=== PATIENT | male | born 1990 | race Caucasian/White ===

== ENCOUNTER 2017-05-14 06:11 | Emergency (ER) | payer OTHER ==
[~2017-05-14] VITALS: Ht 167.6 cm; Wt 59.0 kg
[~2017-05-14 06:11] MED LIST: ATIVAN1 MG PO; BENTYL20 MG PO; CIPROFLOXACIN500 M1 PO; K-DUR 20 MEQ T20 MEQ PO; NOHOMEMEDICATIONS; PEPCID20 MG PO; PHENERGAN 25 MG25 M1 PO; PHENERGAN12.5 M2 RECTAL; PHENERGAN50 MG RC; PROMS25 WY RECTAL; PROTONIX40 M1 PO; ZOFRAN ODT4 MG DISSOLVE; ZOFRAN ODT4 MG PO; ZOFRAN ODT4 MG SUBLING; ZOFRAN4 MG PO
[2017-05-14 06:18] VITALS: BP 124/70
[2017-05-14] MEDS ORDERED: ACID REFLUX PILL (06:24)
== END 2017-05-14 06:42 | disposition home or self-care (01) ==
LOC: M.ERS 06:11
DX: Z53.21 Procedure and treatment not carried out due to patient leaving prior to being seen by health care provider (principal)

== ENCOUNTER 2017-05-16 04:32 | Emergency (ER) | payer OTHER ==
[~2017-05-16] VITALS: Ht 167.6 cm; Wt 59.0 kg
[~2017-05-16 04:32] MED LIST changes: +ACID REFLUX PILL
[2017-05-16 04:58] LABS: ABSOLUTE BASOPHILS 0.1 thou/uL (0.0-0.2); ABSOLUTE EOSINOPHILS 0.1 thou/uL (0.0-0.7); ABSOLUTE LYMPHOCYTES 2.2 thou/uL (0.8-5.3); ABSOLUTE MONOCYTES 0.6 thou/uL (0.0-1.2); ABSOLUTE NEUTROPHILS 4.1 thou/uL (1.6-8.1); EOSINOPHILS 2.1 %; HEMATOCRIT 48.4 % (42.0-52.0); HEMOGLOBIN 16.4 gm/dL (14.0-18.0); LYMPHOCYTES 31.6 %; MCHC 33.9 g/dL (28.0-37.0); MCV 88.4 fL (80.0-100.0); MONOCYTES 7.8 %; MPV 7.9 fl. (7.2-11.1); NUCLEATED RBCS 0 /100WBC; PLATELET COUNT* 327 thou/uL (150-400); POLYS 57.5 %; RBC 5.47 mil/uL (4.50-6.00); RDW-CV 12.4 % (10.5-14.5)
[2017-05-16 05:11] LABS: CALCIUM 10.3 mg/dL (8.5-10.1); POTASSIUM 3.9 mmol/L (3.5-5.1)
[2017-05-16 05:16] LABS: TOTAL BILIRUBIN 0.4 mg/dL (<0.1-1.0); TOTAL PROTEIN 8.9 g/dL (6.4-8.2)
[2017-05-16 05:22] LABS: URINE BILIRUBIN NEGATIVE (Negative); URINE BLOOD NEGATIVE (Negative); URINE CLARITY CLEAR; URINE COLOR YELLOW; URINE GLUCOSE-RANDOM NEGATIVE (Negative); URINE KETONES NEGATIVE (Negative); URINE LEUKOCYTES-REFLEX NEGATIVE (Negative); URINE NITRITE-REFLEX NEGATIVE (Negative); URINE PROTEIN NEGATIVE (Negative); URINE UROBILINOGEN 0.2 E.U./dl (0.2-1.0)
[2017-05-16 05:28] LABS: AMP/METHAMP Negative (Negative); BARBITURATES Negative (Negative); BENZODIAZEPINES Negative (Negative); COCAINE Negative (Negative); METHADONE Negative (Negative); OPIATES Negative (Negative); PCP Negative (Negative); THC POSITIVE (Negative)
[2017-05-16] MEDS ORDERED: ZOFRAN ODT4 MG PO (06:38)
[2017-05-16 06:48] VITALS: BP 133/76
== END 2017-05-16 06:48 | disposition home or self-care (01) ==
LOC: M.ERS 04:32
PROVIDERS: Emergency Medicine Emergency Medical Services
DX: G43.A0 Cyclical vomiting, in migraine, not intractable (principal); F12.10 Cannabis abuse, uncomplicated

== ENCOUNTER 2017-05-21 10:01 | Emergency (ER) | payer OTHER ==
[~2017-05-21] VITALS: Ht 167.6 cm; Wt 61.2 kg
[2017-05-21 10:40] LABS: ABSOLUTE BASOPHILS 0.1 thou/uL (0.0-0.2); ABSOLUTE LYMPHOCYTES 1.6 thou/uL (0.8-5.3); ABSOLUTE MONOCYTES 0.5 thou/uL (0.0-1.2); ABSOLUTE NEUTROPHILS 10.5 thou/uL (1.6-8.1); BASOPHILS 0.5 %; EOSINOPHILS 0.1 %; HEMATOCRIT 51.6 % (42.0-52.0); HEMOGLOBIN 17.3 gm/dL (14.0-18.0); LYMPHOCYTES 12.5 %; MCH 29.7 pg (26.0-34.0); MCHC 33.5 g/dL (28.0-37.0); MCV 88.6 fL (80.0-100.0); MONOCYTES 4.1 %; MPV 8.6 fl. (7.2-11.1); NUCLEATED RBCS 0 /100WBC; PLATELET COUNT* 379 thou/uL (150-400); POLYS 82.8 %; RBC 5.83 mil/uL (4.50-6.00); RDW-CV 12.4 % (10.5-14.5); WBC 12.7 thou/uL (4.0-11.0)
[2017-05-21 10:47] LABS: CALCIUM 10.3 mg/dL (8.5-10.1); CREATININE 1.1 mg/dL (0.6-1.3); POTASSIUM 3.9 mmol/L (3.5-5.1)
[2017-05-21 10:51] LABS: ALBUMIN 5.4 g/dL (3.4-5.0); TOTAL PROTEIN 9.2 g/dL (6.4-8.2)
[2017-05-21] MEDS ORDERED: ZOFRAN ODT4 MG PO (11:06)
[2017-05-21] MEDS ORDERED: PROMS25 WY RECTAL (11:06)
[2017-05-21 11:15] VITALS: BP 138/78
== END 2017-05-21 11:16 | disposition home or self-care (01) ==
LOC: M.ERS 10:01
PROVIDERS: Physician Assistant
DX: G43.A0 Cyclical vomiting, in migraine, not intractable (principal); F12.10 Cannabis abuse, uncomplicated

== ENCOUNTER 2017-08-04 18:22 | Emergency (ER) | payer OTHER ==
[~2017-08-04] VITALS: Ht 167.6 cm; Wt 57.1 kg
[2017-08-04 19:08] LABS: HEMATOCRIT 49.1 % (42.0-52.0); HEMOGLOBIN 16.7 gm/dL (14.0-18.0); MCH 30.6 pg (26.0-34.0); MCHC 34.1 g/dL (28.0-37.0); MCV 89.8 fL (80.0-100.0); MPV 8.5 fl. (7.2-11.1); NUCLEATED RBCS 0 /100WBC; PLATELET COUNT* 318 thou/uL (150-400); RBC 5.47 mil/uL (4.50-6.00); WBC 14.7 thou/uL (4.0-11.0)
[2017-08-04 19:20] LABS: CALCIUM 10.1 mg/dL (8.5-10.1); CREATININE 1.2 mg/dL (0.6-1.3); POTASSIUM 4.3 mmol/L (3.5-5.1)
[2017-08-04 19:24] LABS: ALBUMIN 5.2 g/dL (3.4-5.0); TOTAL BILIRUBIN 1.2 mg/dL (<0.1-1.0); TOTAL PROTEIN 8.7 g/dL (6.4-8.2)
[2017-08-04 19:35] LABS: ABSOLUTE LYMPHOCYTES 0.7 thou/uL (0.8-5.3); ABSOLUTE MONOCYTES 0.7 thou/uL (0.0-1.2); ABSOLUTE NEUTROPHILS 13.2 thou/uL (1.6-8.1)
[2017-08-04 19:36] LABS: PLATELET ESTIMATE ADEQUATE
[2017-08-04 20:13] LABS: URINE BLOOD NEGATIVE (Negative); URINE CLARITY CLEAR; URINE COLOR YELLOW; URINE GLUCOSE-RANDOM NEGATIVE (Negative); URINE LEUKOCYTES-REFLEX NEGATIVE (Negative); URINE NITRITE-REFLEX NEGATIVE (Negative); URINE PROTEIN 2+ (Negative); URINE UROBILINOGEN 0.2 E.U./dl (0.2-1.0)
[2017-08-04 20:15] LABS: URINE KETONES 3+ (Negative)
[2017-08-04 20:18] LABS: ICTOTEST (BILI CONFIRMATORY) Negative (Negative); URINE BILIRUBIN 1+ (Negative)
[2017-08-04 20:21] LABS: URINE REDUCING SUBSTANCE NEGATIVE (Negative)
[2017-08-04 20:22] LABS: AMP/METHAMP Negative (Negative); BARBITURATES Negative (Negative); BENZODIAZEPINES POSITIVE (Negative); COCAINE POSITIVE (Negative); METHADONE Negative (Negative); OPIATES Negative (Negative); PCP Negative (Negative); THC POSITIVE (Negative)
[2017-08-04 20:25] LABS: SQUAMOUS 0-3 Few /LPF (0-3)
[2017-08-04 20:26] LABS: BACTERIA-REFLEX None Seen /HPF (None Seen); CASTS None Seen /LPF (None Seen); CRYSTALS None Seen /LPF (None Seen); MUCUS >6 Heavy strn/LPF (None Seen); URINE RBC 0-2 Rare /HPF (0-2); URINE WBC-REFLEX None Seen /HPF (0-5)
[2017-08-04 20:35] VITALS: BP 116/76
== END 2017-08-04 20:38 | disposition left against medical advice (07) ==
LOC: M.ERS 18:22
PROVIDERS: Nurse Practitioner Family
DX: G43.A0 Cyclical vomiting, in migraine, not intractable (principal)

== ENCOUNTER 2017-08-31 12:21 | Emergency (ER) | payer OTHER ==
[~2017-08-31] VITALS: Ht 160 cm; Wt 61.2 kg
[2017-08-31 12:52] LABS: ABSOLUTE LYMPHOCYTES 1.3 thou/uL (0.8-5.3); ABSOLUTE MONOCYTES 0.6 thou/uL (0.0-1.2); ABSOLUTE NEUTROPHILS 11.2 thou/uL (1.6-8.1); BASOPHILS 0.4 %; EOSINOPHILS 0.1 %; HEMATOCRIT 48.6 % (42.0-52.0); MCH 30.2 pg (26.0-34.0); MCHC 32.9 g/dL (28.0-37.0); MCV 91.6 fL (80.0-100.0); MONOCYTES 4.8 %; MPV 8.7 fl. (7.2-11.1); NUCLEATED RBCS 0 /100WBC; PLATELET COUNT* 270 thou/uL (150-400); POLYS 84.7 %; RBC 5.31 mil/uL (4.50-6.00); RDW-CV 12.5 % (10.5-14.5); WBC 13.2 thou/uL (4.0-11.0)
[2017-08-31 12:56] LABS: CALCIUM 8.9 mg/dL (8.5-10.1); CREATININE 1.1 mg/dL (0.6-1.3); POTASSIUM 4.2 mmol/L (3.5-5.1)
[2017-08-31 13:01] LABS: ALBUMIN 4.7 g/dL (3.4-5.0); TOTAL BILIRUBIN 0.8 mg/dL (<0.1-1.0); TOTAL PROTEIN 7.7 g/dL (6.4-8.2)
[2017-08-31 14:13] LABS: URINE BILIRUBIN NEGATIVE (Negative); URINE BLOOD NEGATIVE (Negative); URINE CLARITY CLEAR; URINE COLOR YELLOW; URINE GLUCOSE-RANDOM NEGATIVE (Negative); URINE KETONES NEGATIVE (Negative); URINE LEUKOCYTES-REFLEX NEGATIVE (Negative); URINE NITRITE-REFLEX NEGATIVE (Negative); URINE PROTEIN NEGATIVE (Negative); URINE SPECIFIC GRAVITY 1.015 (1.005-1.030); URINE UROBILINOGEN 0.2 E.U./dl (0.2-1.0)
[2017-08-31 14:20] LABS: AMP/METHAMP Negative (Negative); BARBITURATES POSITIVE (Negative); BENZODIAZEPINES Negative (Negative); COCAINE Negative (Negative); METHADONE Negative (Negative); OPIATES Negative (Negative); PCP Negative (Negative); THC POSITIVE (Negative)
[2017-08-31 14:48] VITALS: BP 122/72
== END 2017-08-31 14:48 | disposition home or self-care (01) ==
LOC: M.ERS 12:21
PROVIDERS: Emergency Medicine
DX: T78.40XA Allergy, unspecified, initial encounter (principal); X58.XXXA Exposure to other specified factors, initial encounter

== ENCOUNTER 2018-01-07 10:53 | Emergency (ER) | payer OTHER ==
[~2018-01-07] VITALS: Ht 167.6 cm; Wt 56.7 kg
[2018-01-07] MEDS ORDERED: AUGMENTIN 875-1 EACH PO (11:52)
[2018-01-07 11:56] VITALS: BP 132/90
== END 2018-01-07 11:56 | disposition home or self-care (01) ==
LOC: M.ERS 10:53
DX: S51.811A Laceration without foreign body of right forearm, initial encounter (principal); W54.0XXA Bitten by dog, initial encounter; Y93.89 Activity, other specified; Y92.89 Other specified places as the place of occurrence of the external cause; Y99.8 Other external cause status

== ENCOUNTER 2018-03-04 09:12 | Emergency (ER) | payer OTHER ==
[~2018-03-04] VITALS: Ht 167.6 cm; Wt 61.2 kg
[~2018-03-04 09:12] MED LIST changes: +AUGMENTIN 875-1 EACH PO
[2018-03-04 09:44] LABS: ABSOLUTE BASOPHILS 0.1 thou/uL (0.0-0.2); ABSOLUTE LYMPHOCYTES 1.8 thou/uL (0.8-5.3); ABSOLUTE MONOCYTES 0.6 thou/uL (0.0-1.2); BASOPHILS 0.6 %; EOSINOPHILS 0.1 %; HEMOGLOBIN 16.7 gm/dL (14.0-18.0); LYMPHOCYTES 15.9 %; MCH 29.5 pg (26.0-34.0); MCHC 33.3 g/dL (28.0-37.0); MCV 88.5 fL (80.0-100.0); MONOCYTES 5.4 %; MPV 8.9 fl. (7.2-11.1); NUCLEATED RBCS 0 /100WBC; PLATELET COUNT* 347 thou/uL (150-400); RBC 5.65 mil/uL (4.50-6.00); RDW-CV 12.4 % (10.5-14.5); WBC 11.6 thou/uL (4.0-11.0)
[2018-03-04 09:58] LABS: ALBUMIN 5.3 g/dL (3.4-5.0); CALCIUM 10.2 mg/dL (8.5-10.1); CREATININE 1.1 mg/dL (0.6-1.3); TOTAL BILIRUBIN 1.2 mg/dL (<0.1-1.0); TOTAL PROTEIN 8.9 g/dL (6.4-8.2)
[2018-03-04 11:13] LABS: URINE BILIRUBIN NEGATIVE (Negative); URINE BLOOD NEGATIVE (Negative); URINE CLARITY CLEAR; URINE COLOR YELLOW; URINE GLUCOSE-RANDOM NEGATIVE (Negative); URINE KETONES 1+ (Negative); URINE LEUKOCYTES-REFLEX NEGATIVE (Negative); URINE NITRITE-REFLEX NEGATIVE (Negative); URINE PROTEIN TRACE (Negative); URINE SPECIFIC GRAVITY 1.015 (1.005-1.030); URINE UROBILINOGEN 0.2 E.U./dl (0.2-1.0)
[2018-03-04] MEDS ORDERED: ZOFRAN ODT4 MG DISSOLVE (11:20)
[2018-03-04 11:27] LABS: AMP/METHAMP Negative (Negative); BARBITURATES Negative (Negative); BENZODIAZEPINES Negative (Negative); COCAINE Negative (Negative); METHADONE Negative (Negative); OPIATES Negative (Negative); PCP Negative (Negative); THC POSITIVE (Negative)
[2018-03-04 11:30] VITALS: BP 131/74
--- NOTE | 2018-03-04 15:42 | EKG ---
[place] [address] ELECTROCARDIOGRAM REPORT Name: BETTE QUIROGA III [facility] [id number] Admission: 03/04/18 Attend Phys: Discharge: 03/04/18 Date of : 89 Report #: [id number] THIS REPORT FOR: //name// [facility] ED Test Date: 2018-03-04 Test Time: 10:05:20 Pat Name: BETTE QUIROGA Department: Room: Gender: Display Coordinator: Yvon GARNICA : 1990 Requested By: Santosh Pope Order Number: [id number] MD: Temo Garcia Measurements Intervals [place] Rate: 69 P: 65 [place]: 128 QRS: 66 QRSD: 87 T: 56 QT: 430 QTc: 461 Interpretive Statements Sinus arrhythmia No previous ECG available for comparison Electronically Signed On 03-04-2018 15:42:31 CDT by Temo Garcia [email or web address] <ELECTRONICALLY SIGNED> By: Temo Garcia MD, [facility] 03/04/18 1542 1005 1005 Temo Garcia MD, FACC /EPI
== END 2018-03-04 11:32 | disposition home or self-care (01) ==
LOC: M.ERS 09:12
PROVIDERS: Emergency Medicine Emergency Medical Services
DX: G43.A0 Cyclical vomiting, in migraine, not intractable (principal); Z88.8 Allergy status to other drugs, medicaments and biological substances

== ENCOUNTER 2018-03-16 15:24 | Emergency (ER) | payer OTHER ==
[~2018-03-16] VITALS: Ht 172.7 cm; Wt 63.5 kg
[2018-03-16 16:06] LABS: ABSOLUTE BASOPHILS 0.1 thou/uL (0.0-0.2); ABSOLUTE LYMPHOCYTES 1.9 thou/uL (0.8-5.3); ABSOLUTE MONOCYTES 1.1 thou/uL (0.0-1.2); ABSOLUTE NEUTROPHILS 14.1 thou/uL (1.6-8.1); BASOPHILS 0.5 %; EOSINOPHILS 0.3 %; HEMATOCRIT 49.9 % (42.0-52.0); HEMOGLOBIN 16.6 gm/dL (14.0-18.0); LYMPHOCYTES 10.8 %; MCH 29.9 pg (26.0-34.0); MCHC 33.2 g/dL (28.0-37.0); MCV 90.1 fL (80.0-100.0); MONOCYTES 6.5 %; MPV 8.8 fl. (7.2-11.1); NUCLEATED RBCS 0 /100WBC; PLATELET COUNT* 390 thou/uL (150-400); POLYS 81.9 %; RBC 5.54 mil/uL (4.50-6.00); RDW-CV 12.7 % (10.5-14.5); WBC 17.2 thou/uL (4.0-11.0)
[2018-03-16 16:10] LABS: CALCIUM 10.6 mg/dL (8.5-10.1); CREATININE 1.2 mg/dL (0.6-1.3); POTASSIUM 3.4 mmol/L (3.5-5.1)
[2018-03-16] MEDS ORDERED: VISTARIL 25 MG25 M1 PO ×2 (17:16→17:18)
[2018-03-16 17:32] VITALS: BP 115/63
== END 2018-03-16 17:40 | disposition home or self-care (01) ==
LOC: M.ERS 15:24
PROVIDERS: Nurse Practitioner
DX: R10.9 Unspecified abdominal pain (principal); R11.2 Nausea with vomiting, unspecified; Z88.8 Allergy status to other drugs, medicaments and biological substances

== ENCOUNTER 2018-04-29 09:57 | Emergency (ER) | payer OTHER ==
[~2018-04-29] VITALS: Ht 167.6 cm; Wt 61.2 kg
[~2018-04-29 09:57] MED LIST changes: +VISTARIL 25 MG25 M1 PO
[2018-04-29 10:22] LABS: ABSOLUTE LYMPHOCYTES 1.5 thou/uL (0.8-5.3); ABSOLUTE MONOCYTES 0.4 thou/uL (0.0-1.2); ABSOLUTE NEUTROPHILS 9.1 thou/uL (1.6-8.1); BASOPHILS 0.4 %; EOSINOPHILS 0.1 %; HEMATOCRIT 49.2 % (42.0-52.0); HEMOGLOBIN 16.8 gm/dL (14.0-18.0); LYMPHOCYTES 13.5 %; MCH 30.3 pg (26.0-34.0); MCHC 34.1 g/dL (28.0-37.0); MCV 88.8 fL (80.0-100.0); MONOCYTES 3.5 %; NUCLEATED RBCS 0 /100WBC; PLATELET COUNT* 322 thou/uL (150-400); POLYS 82.5 %; RBC 5.54 mil/uL (4.50-6.00); RDW-CV 12.9 % (10.5-14.5); WBC 11.1 thou/uL (4.0-11.0)
[2018-04-29 10:26] LABS: POTASSIUM 3.7 mmol/L (3.5-5.1)
[2018-04-29 10:33] LABS: ALBUMIN 5.2 g/dL (3.4-5.0); TOTAL BILIRUBIN 1.4 mg/dL (<0.1-1.0); TOTAL PROTEIN 8.7 g/dL (6.4-8.2)
[2018-04-29] MEDS ORDERED: ZOFRAN ODT4 MG PO (10:50)
[2018-04-29] MEDS ORDERED: HYDROXYZINE HCL25 M1 PO (10:52)
[2018-04-29 10:58] VITALS: BP 156/72
== END 2018-04-29 10:58 | disposition home or self-care (01) ==
LOC: M.ERS 09:57
PROVIDERS: Physician Assistant
DX: K31.89 Other diseases of stomach and duodenum (principal); R11.10 Vomiting, unspecified; F41.9 Anxiety disorder, unspecified

== ENCOUNTER 2018-06-06 14:30 | Emergency (ER) | payer OTHER ==
[~2018-06-06] VITALS: Ht 170.2 cm; Wt 63.5 kg
[~2018-06-06 14:30] MED LIST changes: +HYDROXYZINE HCL25 M1 PO
[2018-06-06 15:15] LABS: HEMATOCRIT 47.9 % (42.0-52.0); HEMOGLOBIN 16.2 gm/dL (14.0-18.0); MCH 30.6 pg (26.0-34.0); MCHC 33.8 g/dL (28.0-37.0); MCV 90.7 fL (80.0-100.0); MPV 8.7 fl. (7.2-11.1); NUCLEATED RBCS 0 /100WBC; PLATELET COUNT* 334 thou/uL (150-400); RBC 5.28 mil/uL (4.50-6.00); RDW-CV 12.9 % (10.5-14.5); WBC 12.8 thou/uL (4.0-11.0)
[2018-06-06 15:23] LABS: CALCIUM 10.1 mg/dL (8.5-10.1); CREATININE 1.2 mg/dL (0.6-1.3); POTASSIUM 3.4 mmol/L (3.5-5.1)
[2018-06-06 15:28] LABS: ALBUMIN 5.1 g/dL (3.4-5.0); TOTAL PROTEIN 8.9 g/dL (6.4-8.2)
[2018-06-06 15:36] LABS: ABSOLUTE BASOPHILS 0.1 thou/uL (0.0-0.2); ABSOLUTE LYMPHOCYTES 0.6 thou/uL (0.8-5.3); ABSOLUTE MONOCYTES 0.5 thou/uL (0.0-1.2); ABSOLUTE NEUTROPHILS 11.5 thou/uL (1.6-8.1); ATYPICAL LYMPHS 1 %; PLATELET ESTIMATE ADEQUATE
[2018-06-06 16:44] LABS: URINE BILIRUBIN NEGATIVE (Negative); URINE BLOOD NEGATIVE (Negative); URINE CLARITY CLEAR; URINE COLOR YELLOW; URINE GLUCOSE-RANDOM NEGATIVE (Negative); URINE LEUKOCYTES NEGATIVE (Negative); URINE NITRITE NEGATIVE (Negative); URINE PROTEIN 1+ (Negative); URINE SPECIFIC GRAVITY 1.025 (1.005-1.030); URINE UROBILINOGEN 0.2 E.U./dl (0.2-1.0)
[2018-06-06 16:45] LABS: URINE KETONES 3+ (Negative)
[2018-06-06 16:51] LABS: AMP/METHAMP Negative (Negative); BARBITURATES Negative (Negative); BENZODIAZEPINES Negative (Negative); COCAINE Negative (Negative); METHADONE Negative (Negative); OPIATES Negative (Negative); PCP Negative (Negative); THC POSITIVE (Negative)
[2018-06-06] MEDS ORDERED: BENTYL 20 MG TA20 M1 PO (18:27)
[2018-06-06 19:30] VITALS: BP 117/74
[2018-06-07] MEDS ORDERED: FLEXERIL PO (21:50)
[2018-06-07] MEDS ORDERED: HYDROXYZINE HCL25 M2 PO (21:50)
[2018-06-07] MEDS ORDERED: ZOFRAN ODT4 MG PO (21:50)
== END 2018-06-06 19:31 | disposition home or self-care (01) ==
LOC: M.ERS 14:30
PROVIDERS: Nurse Practitioner Family
DX: R19.7 Diarrhea, unspecified (principal); R11.2 Nausea with vomiting, unspecified; K31.89 Other diseases of stomach and duodenum; Z88.8 Allergy status to other drugs, medicaments and biological substances

== ENCOUNTER 2018-06-07 20:18 | Emergency (ER) | payer OTHER ==
[~2018-06-07] VITALS: Ht 172.7 cm; Wt 61.2 kg
[~2018-06-07 20:18] MED LIST changes: +BENTYL 20 MG TA20 M1 PO
[2018-06-07 20:55] LABS: HEMATOCRIT 40.2 % (42.0-52.0); MCH 30.5 pg (26.0-34.0); MCHC 33.9 g/dL (28.0-37.0); MPV 8.8 fl. (7.2-11.1); NUCLEATED RBCS 0 /100WBC; PLATELET COUNT* 270 thou/uL (150-400); RBC 4.47 mil/uL (4.50-6.00); RDW-CV 12.9 % (10.5-14.5); WBC 10.4 thou/uL (4.0-11.0)
[2018-06-07 20:57] LABS: HEMOGLOBIN 13.6 gm/dL (14.0-18.0)
[2018-06-07 21:18] LABS: URINE BILIRUBIN NEGATIVE (Negative); URINE BLOOD NEGATIVE (Negative); URINE CLARITY CLEAR; URINE COLOR YELLOW; URINE GLUCOSE-RANDOM NEGATIVE (Negative); URINE KETONES 1+ (Negative); URINE LEUKOCYTES-REFLEX NEGATIVE (Negative); URINE NITRITE-REFLEX NEGATIVE (Negative); URINE PROTEIN NEGATIVE (Negative); URINE SPECIFIC GRAVITY >= 1.030 (1.005-1.030); URINE UROBILINOGEN 0.2 E.U./dl (0.2-1.0)
[2018-06-07 21:19] LABS: CALCIUM 9.5 mg/dL (8.5-10.1); CREATININE 1.1 mg/dL (0.6-1.3); POTASSIUM 3.4 mmol/L (3.5-5.1)
[2018-06-07 21:23] LABS: ALBUMIN 4.4 g/dL (3.4-5.0); TOTAL BILIRUBIN 0.9 mg/dL (<0.1-1.0); TOTAL PROTEIN 7.5 g/dL (6.4-8.2)
[2018-06-07 21:28] LABS: AMP/METHAMP Negative (Negative); BARBITURATES Negative (Negative); BENZODIAZEPINES Negative (Negative); COCAINE Negative (Negative); METHADONE Negative (Negative); OPIATES Negative (Negative); PCP Negative (Negative); THC POSITIVE (Negative)
[2018-06-07 21:31] LABS: ABSOLUTE LYMPHOCYTES 0.8 thou/uL (0.8-5.3); ABSOLUTE MONOCYTES 0.2 thou/uL (0.0-1.2); ABSOLUTE NEUTROPHILS 9.4 thou/uL (1.6-8.1)
[2018-06-07 21:34] LABS: PLATELET ESTIMATE ADEQUATE
[2018-06-07] MEDS ORDERED: FLEXERIL PO (21:50)
[2018-06-07] MEDS ORDERED: ZOFRAN ODT4 MG PO (21:50)
[2018-06-07] MEDS ORDERED: HYDROXYZINE HCL25 M2 PO (21:50)
[2018-06-07 22:55] VITALS: BP 124/80
== END 2018-06-07 22:56 | disposition home or self-care (01) ==
LOC: M.ERS 20:18
PROVIDERS: Nurse Practitioner Family
DX: F11.23 Opioid dependence with withdrawal (principal); F13.230 Sedative, hypnotic or anxiolytic dependence with withdrawal, uncomplicated; F19.10 Other psychoactive substance abuse, uncomplicated; Z88.8 Allergy status to other drugs, medicaments and biological substances

== ENCOUNTER 2018-11-21 12:12 | Emergency (ER) | payer OTHER ==
[~2018-11-21] VITALS: Ht 167.6 cm; Wt 59.0 kg
[~2018-11-21 12:12] MED LIST changes: +FLEXERIL PO; +HYDROXYZINE HCL25 M2 PO
[2018-11-21 12:49] LABS: ABSOLUTE LYMPHOCYTES 1.3 thou/uL (0.8-5.3); ABSOLUTE MONOCYTES 0.3 thou/uL (0.0-1.2); ABSOLUTE NEUTROPHILS 8.8 thou/uL (1.6-8.1); BASOPHILS 0.4 %; HEMATOCRIT 48.3 % (42.0-52.0); HEMOGLOBIN 16.4 gm/dL (14.0-18.0); LYMPHOCYTES 12.6 %; MCH 30.1 pg (26.0-34.0); MCHC 33.9 g/dL (28.0-37.0); MCV 88.5 fL (80.0-100.0); MONOCYTES 2.8 %; MPV 8.4 fl. (7.2-11.1); NUCLEATED RBCS 0 /100WBC; PLATELET COUNT* 346 thou/uL (150-400); POLYS 84.2 %; RBC 5.46 mil/uL (4.50-6.00); RDW-CV 13.1 % (10.5-14.5); WBC 10.5 thou/uL (4.0-11.0)
[2018-11-21 13:07] LABS: POTASSIUM 3.7 mmol/L (3.5-5.1)
[2018-11-21 13:12] LABS: ALBUMIN 5.4 g/dL (3.4-5.0); TOTAL PROTEIN 8.9 g/dL (6.4-8.2)
[2018-11-21] MEDS ORDERED: HIGH POTENCY42.5 GM TOP (13:41)
[2018-11-21] MEDS ORDERED: ZOFRAN ODT4 MG PO (13:41)
[2018-11-21 14:00] VITALS: BP 126/74
== END 2018-11-21 14:00 | disposition home or self-care (01) ==
LOC: M.ERS 12:12
PROVIDERS: Nurse Practitioner Family
DX: G43.A0 Cyclical vomiting, in migraine, not intractable (principal); R10.84 Generalized abdominal pain; Z88.8 Allergy status to other drugs, medicaments and biological substances

== ENCOUNTER 2019-04-05 07:29 | Emergency (ER) | payer OTHER ==
[~2019-04-05] VITALS: Ht 167.6 cm; Wt 56.7 kg
[~2019-04-05 07:29] MED LIST changes: +HIGH POTENCY42.5 GM TOP
[2019-04-05 08:10] LABS: HEMATOCRIT 46.4 % (42.0-52.0); MCH 30.3 pg (26.0-34.0); MCHC 34.6 g/dL (28.0-37.0); MCV 87.5 fL (80.0-100.0); MPV 8.5 fl. (7.2-11.1); NUCLEATED RBCS 0 /100WBC; PLATELET COUNT* 345 thou/uL (150-400); RDW-CV 12.6 % (10.5-14.5); WBC 15.2 thou/uL (4.0-11.0)
[2019-04-05 08:21] LABS: CALCIUM 10.6 mg/dL (8.5-10.1); CREATININE 1.1 mg/dL (0.6-1.3); POTASSIUM 3.9 mmol/L (3.5-5.1)
[2019-04-05 08:25] LABS: ALBUMIN 5.3 g/dL (3.4-5.0); TOTAL BILIRUBIN 0.6 mg/dL (<0.1-1.0); TOTAL PROTEIN 8.9 g/dL (6.4-8.2)
[2019-04-05 08:46] LABS: ABSOLUTE LYMPHOCYTES 1.4 thou/uL (0.8-5.3); ABSOLUTE MONOCYTES 0.6 thou/uL (0.0-1.2); ABSOLUTE NEUTROPHILS 13.2 thou/uL (1.6-8.1)
[2019-04-05 08:47] LABS: CLUMPED PLTS FEW; PLATELET ESTIMATE ADEQUATE
[2019-04-05] MEDS ORDERED: ZOFRAN ODT4 MG DISSOLVE (09:34)
[2019-04-05] MEDS ORDERED: BENTYL 20 MG TA20 M1 PO (09:34)
[2019-04-05 09:55] VITALS: BP 127/50
== END 2019-04-05 09:56 | disposition home or self-care (01) ==
LOC: M.ERS 07:29
PROVIDERS: Emergency Medicine Emergency Medical Services
DX: R11.2 Nausea with vomiting, unspecified (principal); R19.7 Diarrhea, unspecified; Z88.8 Allergy status to other drugs, medicaments and biological substances

== ENCOUNTER 2021-04-03 12:37 | Emergency (ER) | payer OTHER ==
[~2021-04-03] VITALS: Ht 157.5 cm; Wt 59.0 kg
[2021-04-03] MEDS ORDERED: CEPHALEXIN500 MG PO (13:35)
[2021-04-03 13:45] VITALS: BP 123/81
[2021-04-03] MEDS ORDERED: APAP W/CODEINE1 TA2 PO (15:31)
== END 2021-04-03 13:45 | disposition home or self-care (01) ==
LOC: M.ERS 12:37
DX: S61.011A Laceration without foreign body of right thumb without damage to nail, initial encounter (principal); F12.90 Cannabis use, unspecified, uncomplicated; Z88.8 Allergy status to other drugs, medicaments and biological substances; W26.8XXA Contact with other sharp object(s), not elsewhere classified, initial encounter; Y93.89 Activity, other specified; Y92.89 Other specified places as the place of occurrence of the external cause; Y99.9 Unspecified external cause status

== ENCOUNTER 2021-05-09 11:04 | Emergency (ER) | payer OTHER ==
[~2021-05-09] VITALS: Ht 167.6 cm; Wt 59.0 kg
[~2021-05-09 11:04] MED LIST changes: +APAP W/CODEINE1 TA2 PO; +CEPHALEXIN500 MG PO
[2021-05-09 11:10] VITALS: BP 112/76
== END 2021-05-09 11:57 | disposition left against medical advice (07) ==
LOC: M.ERS 11:04
DX: Z53.21 Procedure and treatment not carried out due to patient leaving prior to being seen by health care provider (principal)